=== PATIENT | female | born 1965 | race Caucasian/White ===

== ENCOUNTER 2017-02-15 06:52 | Day surgery (SDC) | payer BC ==
[2017-02-11 17:06] VITALS: BMI 29.0
[2017-02-15] MEDS ORDERED: CEFAZOLIN/Water 2 GM/20 ML SYRINGE ONE (08:40)
[2017-02-15] MEDS ORDERED: Ropivacaine 0.2% HCl/PF 20 ML ONE (09:06)
[2017-02-15] MEDS ORDERED: Fentanyl 100 MCG/2 ML VIAL ONE (09:06)
[2017-02-15] MEDS ORDERED: Midazolam HCl 2 mg/2 ml Vial ONE (09:06)
[2017-02-15] MEDS ORDERED: Ketorolac Tromethamine 30 MG/ML VIAL IVP PRN (09:39)
[2017-02-15] MEDS ORDERED: Zolpidem Tartrate 5 MG TAB PO PRN (09:39)
[2017-02-15] MEDS ORDERED: HYDROcodone/Acetaminophen 10/325 mg Tablet PO PRN ×2 (09:39)
[2017-02-15] MEDS ORDERED: Promethazine HCl 25 MG/ML VIAL IM PRN (09:39)
[2017-02-15] MEDS ORDERED: traMADol HCl 50 MG TAB PO PRN ×2 (09:39)
[2017-02-15] MEDS ORDERED: Fentanyl 100 MCG/2 ML VIAL IV PRN (09:39)
[2017-02-15] MEDS ORDERED: Ropivacaine 0.2% 550 ML 550 ML NERVE BLCK SCH (09:39)
[2017-02-15] MEDS ORDERED: Ondansetron HCl/PF 4 MG/2 ML Vial IVP PRN (09:39)
[2017-02-15] MEDS ORDERED: Bupivacaine/Epinephrine 0.25% 30 ML VIAL ONE (10:05)
[2017-02-15] MEDS ORDERED: Glycopyrrolate 0.2 MG/ML 5 ML SYRINGE ONE (10:47)
[2017-02-15] MEDS ORDERED: Ondansetron HCl/PF 4 MG/2 ML Vial ONE (10:47)
[2017-02-15] MEDS ORDERED: Ketorolac Tromethamine 30 MG/ML VIAL ONE (10:47)
[2017-02-15] MEDS ORDERED: Lidocaine 2% MPF 10 ML AMP (For Epidural Use) ONE (10:47)
[2017-02-15] MEDS ORDERED: PHENYLEPHRINE-NS 100 MCG/ML 10 ML SYRINGE ONE (10:47)
[2017-02-15] MEDS ORDERED: Propofol 200 MG/20 ML VIAL ONE (10:47)
--- NOTE | 2017-02-15 13:12 | OP ---
DATE OF PROCEDURE: 02/15/2017 PREOPERATIVE DIAGNOSIS: Right rotator cuff tear. POSTOPERATIVE DIAGNOSIS: Right rotator cuff tear. PROCEDURE PERFORMED: Right arthroscopic rotator cuff repair. STAFF: Burke Oden M.D. WELDING MACHINE OPERATOR ELECTRON BEAM: None. ANESTHESIA: Bright Patterson. The patient received general endotracheal intubation interscalene block. ESTIMATED BLOOD LOSS: 30 mL. TOURNIQUET TIME: None. IMPLANTS: 5.5 corkscrews, 5.5 SwiveLock. ANTIBIOTICS: Two grams. COMPLICATIONS: None. HISTORY OF PRESENT ILLNESS: Ms. Lawson is a pleasant 49-year-old female who presented to me with abo ut 6 months of shoulder pain. She had a full thickness tear on imaging. I discussed with patient t he risks and benefits of arthroscopic evaluation and rotator cuff repair. She understood the risks and benefits to include pain, scar, bleeding, infection, damage to vital structures, decreased range of motion, strength, continued pain, failure of procedure, failure of repair with history of bariat jin surgery. The patient understood the risks and benefits and elected to proceed. PROCEDURE IN DETAIL: Timeout was performed designating the patient's right upper extremity as the o perative site based on sight, consents and markings. After completion of timeout, the patient's rig ht upper extremity was prepped and draped in sterile fashion. She was in a beach chair positioning. The patient in a posterior working portal and anterior working portal, we looked intraarticularly. There is no glenoid or humeral defects. No lesions. There was some fraying of the subscapularis. There was some fraying of the capsule, but no full thickness component noted intra-articularly. I looked for any loose bodies, labrum was split subtly degenerated, but otherwise intact. I moved mendoza bacromially, removed the bursa, exposed the patient's subacromial space and found her tear. We debr ided the bone with a shaver as well as subacromially debrided the subacromial space to help with ope n positioning, we debrided this, we placed an awl, and passed a 5.5 corkscrew into the hole. We the n passed anterior to posterior screws and sewed posterior to anterior horizontal mattress sutures, a total of 2. A second row 5.5 SwiveLock laterally to help to compress the cuff down to its footprin t. I then cut the sutures, removed the anchors, adjusted stability. I liked the overall alignment and position of the repair. We then washed, closed with 2-0 nylon. The patient was placed in an abduction sling. She will remain in it for 2 weeks. She will work on elbow, wrist, and hand motion until I see her back in 2 weeks in clinic.
[2017-02-15] MEDS ORDERED: Ropivacaine 0.5% HCl/PF (150 MG/30 ML VIAL) ONE (14:47)
== END 2017-02-15 14:10 | disposition home or self-care (01) ==
LOC: SDC 06:52
PROVIDERS: ATTEND Orthopaedic Surgery
PROC: 0LQ14ZZ Repair Right Shoulder Tendon, Percutaneous Endoscopic Approach (ICD-10-PCS; principal; 2017-02-15)
DX: S46.011A Strain of muscle(s) and tendon(s) of the rotator cuff of right shoulder, initial encounter (principal)
CPT/HCPCS: A4306; C1713; J1885; J2001; J2250; J2405; J2704; J2795; J3010

== ENCOUNTER 2017-12-15 10:27 | Outpatient (CLI) | payer BC | END 2017-12-15 10:28 | disposition home or self-care (01) | LOC: BICMAMMO 10:27 | PROVIDERS: ATTEND Internal Medicine | DX: Z12.31 Encounter for screening mammogram for malignant neoplasm of breast (principal) | CPT/HCPCS: 77063; 77067 ==

== ENCOUNTER 2017-12-21 16:06 | Outpatient (CLI) | payer BC | END 2017-12-21 16:07 | disposition home or self-care (01) | LOC: BICRAD 16:06 | PROVIDERS: ATTEND Internal Medicine Rheumatology | DX: M54.5 Low back pain (principal); M47.896 Other spondylosis, lumbar region; M47.897 Other spondylosis, lumbosacral region; M43.16 Spondylolisthesis, lumbar region | CPT/HCPCS: 72100 ==

== ENCOUNTER 2018-03-15 20:42 | Emergency (ER) | payer BC ==
[2018-03-15] MEDS ORDERED: Dexamethasone 10 MG/ML VIAL ONE (21:08)
[2018-03-15] MEDS ORDERED: hydrOXYzine 25 MG TAB ONE (21:08)
[2018-03-15] MEDS ORDERED: Famotidine 20 MG TAB ONE (21:08)
== END 2018-03-15 23:00 | disposition home or self-care (01) ==
LOC: ERS 20:42
DX: T78.40XA Allergy, unspecified, initial encounter (principal); E78.5 Hyperlipidemia, unspecified
CPT/HCPCS: 99282; J1100

== ENCOUNTER 2018-03-22 08:51 | Outpatient (CLI) | payer BC ==
--- NOTE | 2018-03-22 11:10 | BD ---
[facility] DEXA BONE DENSITY SCAN: 03/22/2018 HISTORY: Postmenopausal female undergoing screening for osteoporosis. FINDINGS: LUMBAR SPINE BMD (g/cm2) T-SCORE L1 0.993 0.0 L2 1.018 -0.1 L3 1.035 -0.4 L4 1.142 0.7 TOTAL 1.049 0.0 FEMORAL NECK 0.657 -1.7 TOTAL 0.868 -0.6 FRAX: The WHO Fracture Risk Assessment Tool reports a 10-year fracture risk of 6% for a major osteop orotic fracture of 0.6% for a hip fracture, in an untreated patient. IMPRESSION: Femoral neck osteopenia, correlating with a moderately increased risk for fracture. POS: [facility]
== END 2018-03-22 08:52 | disposition home or self-care (01) ==
LOC: BICMAMMO 08:51
PROVIDERS: ATTEND Student in an Organized Health Care Education/Training Program
DX: Z13.820 Encounter for screening for osteoporosis (principal); M85.859 Other specified disorders of bone density and structure, unspecified thigh
CPT/HCPCS: 77080

== ENCOUNTER 2018-10-08 08:47 | Emergency (ER) | payer BC ==
[2018-10-08] MEDS ORDERED: Lorazepam 2 MG/ML VIAL ONE (10:11)
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
[2018-10-08 10:51] LABS: #Eosinphils 0.1 thou/uL (0.0-0.7); #Lymphocytes 2.2 thou/uL (1.20-3.40); #Monocytes 0.4 thou/uL (0.11-0.59); #Neutrophils 6.4 thou/uL (1.40-6.50); %Basophils 0.5 % (0.0-1.0); %Eosinophils 1.4 % (0.0-10.0); %Lymphocytes 24.1 % (21.0-51.0); %Monocytes 4.7 % (0.0-10.0); %Neutrophils 69.2 % (42.0-75.0); Hemoglobin 14.4 g/dL (12.0-16.0); Mean Corpuscular Hemoglobin 30.8 pg (27.0-31.0); Mean Corpuscular Volume 90.5 fL (78.0-98.0); Mean Platelet Volume 6.9 fL (7.4-10.4); Platelet Count 355 thou/uL (130-400); RBC Distribution Width 12.2 % (11.5-14.5); Red Blood Cell (RBC) Count 4.69 mill/uL (4.20-5.40); White Blood Cell (WBC) Count 9.2 thou/uL (4.8-10.8)
[2018-10-08 11:00] LABS: Bilirubin Negative (Negative); Blood, Urine Negative (Negative); Clarity Clear (Clear); Glucose, Urine (Dipstick) Normal (Negative); Leukocyte Negative Leu/uL (Negative); Nitrite Negative (Negative); Protein, Urine (Dipstick) Negative (Neg-Trace); Urobilinogen Normal mg/dL (Less than 2)
[2018-10-08 11:02] LABS: Amphetamine Detected (NotDetected); Barbiturates Screen Not Detected (NotDetected); Benzodiazepine Screen Detected (NotDetected); Cocaine Metabolite Screen Not Detected (NotDetected); Medtox Control Line Valid? VALID (VALID); Medtox Reader # READER 1; Methadone Not Detected (NotDetected); Methamphetamine Not Detected (NotDetected); Opiate Screen Not Detected (NotDetected); Oxycodone Screen Not Detected (NotDetected); Phencyclidine (PCP) Not Detected (NotDetected); THC/Cannabinoid Screen Not Detected (NotDetected); Tricyclic Screen Not Detected (NotDetected)
[2018-10-08 11:10] LABS: ALT (SGPT) 14 U/L (8-55); AST (SGOT) 22 U/L (5-34); Acetaminophen Less than 6.0 mcg/mL (10.0-30.0); Albumin 4.1 g/dL (3.5-5.0); Alcohol Less than 10 mg/dL (Less than 10); Alkaline Phosphatase 95 U/L (40-150); Anion Gap 14 mmol/L (10-20); BUN (Urea Nitrogen) 11 mg/dL (9.8-20.1); Bilirubin, Total 0.4 mg/dL (0.2-1.2); Calc. Creatinine Clearance 0 mL/min (70-130); Calcium 9.4 mg/dL (7.8-10.44); Carbon Dioxide 27 mmol/L (22-29); Chloride 101 mmol/L (98-107); Estimated GFR-MDRD 63; Globulin 3.2 g/dL (2.4-3.5); Glucose 88 mg/dL (70-105); Potassium 3.6 mmol/L (3.5-5.1); Protein, Total 7.3 g/dL (6.0-8.3); Salicylate Less than 8.0 mg/dL (15.0-30.0); Sodium 138 mmol/L (136-145)
== END 2018-10-08 13:11 | disposition home or self-care (01) ==
LOC: ERS 08:47
DX: R53.83 Other fatigue (principal); E78.5 Hyperlipidemia, unspecified; F41.9 Anxiety disorder, unspecified; F32.9 Major depressive disorder, single episode, unspecified; Z79.899 Other long term (current) drug therapy; V43.52XA Car driver injured in collision with other type car in traffic accident, initial encounter
CPT/HCPCS: 70450; 80053; 80306; 80307; 81003; 84443; 85025; 93005; 96361; 96374; J2060

== ENCOUNTER 2020-01-15 15:11 | Outpatient (CLI) | payer BC ==
--- NOTE | 2020-01-15 15:45 | RAD ---
XR Knee Lt 3 View HISTORY: Injury, left knee pain, sprain FINDINGS: No fracture or dislocation is identified. There is no evidence of a joint effusion.
== END 2020-01-15 15:12 | disposition home or self-care (01) ==
LOC: BICRAD 15:11
PROVIDERS: ATTEND Family Medicine
DX: S83.92XA Sprain of unspecified site of left knee, initial encounter (principal)

== ENCOUNTER 2022-03-18 14:29 | Outpatient (CLI) | payer MEDICARE | END 2022-03-18 14:30 | disposition home or self-care (01) | LOC: BICMAMMO 14:29 | PROVIDERS: ATTEND Advanced Practice Midwife | DX: Z13.820 Encounter for screening for osteoporosis (principal); M85.851 Other specified disorders of bone density and structure, right thigh; M85.852 Other specified disorders of bone density and structure, left thigh | CPT/HCPCS: 77080 ==

== ENCOUNTER 2022-11-25 16:08 | Observation (INO) | payer MEDICARE ==
[2022-11-25 17:04] LABS: #Eosinphils 0.2 thou/uL (0.0-0.7); #Monocytes 0.5 thou/uL (0.11-0.59); #Neutrophils 6.2 thou/uL (1.40-6.50); %Basophils 0.4 % (0.0-1.0); %Lymphocytes 28.9 % (21.0-51.0); %Monocytes 5.2 % (0.0-10.0); %Neutrophils 63.2 % (42.0-75.0); Hematocrit 40.1 % (36.0-47.0); Hemoglobin 12.6 g/dL (12.0-16.0); Mean Corpuscular HGB CONC 31.4 g/dL (32.0-36.0); Mean Corpuscular Hemoglobin 28.4 pg (27.0-31.0); Mean Corpuscular Volume 90.3 fl (78.0-98.0); Mean Platelet Volume 9.3 fL (7.4-10.4); Platelet Count 376 10x3/uL (130-400); RBC Distribution Width 15.2 % (11.5-14.5); Red Blood Cell (RBC) Count 4.44 mill/uL (4.20-5.40); White Blood Cell (WBC) Count 9.9 10x3/uL (4.8-10.8)
[2022-11-25 17:32] LABS: ALT (SGPT) 12 U/L (8-55); AST (SGOT) 21 U/L (5-34); Albumin 4.1 g/dL (3.5-5.0); Alkaline Phosphatase 113 U/L (40-110); Anion Gap 14 mmol/L (10-20); BUN (Urea Nitrogen) 9 mg/dL (9.8-20.1); Bilirubin, Total 0.2 mg/dL (0.2-1.2); Calc. Creatinine Clearance 0 mL/min (70-130); Calcium 9.1 mg/dL (7.8-10.44); Carbon Dioxide 26 mmol/L (22-29); Chloride 105 mmol/L (98-107); Estimated GFR 63; Globulin 2.9 g/dL (2.4-3.5); Glucose 82 mg/dL (70-105); Potassium 4.6 mmol/L (3.5-5.1); Sodium 140 mmol/L (136-145)
[2022-11-25 17:41] LABS: Troponin I Less than 0.010 ng/mL (< 0.028)
[2022-11-25] MEDS ORDERED: Aspirin Chewable 81 MG TAB ONE ×2 (18:38→18:41)
[2022-11-25] MEDS ORDERED: Acetaminophen 325 MG TAB ONE (18:38)
[2022-11-25] MEDS ORDERED: Nitroglycerin 0.4 MG TAB 1 EACH ONE (18:55)
[2022-11-25] MEDS ORDERED: Morphine 4 MG/ML VIAL ONE (20:04)
[2022-11-25 21:09] LABS: Troponin I Less than 0.010 ng/mL (< 0.028)
[2022-11-25] MEDS ORDERED: Senokot S 8.6-50 MG TAB PO PRN (21:49)
[2022-11-25] MEDS ORDERED: Calcium Carbonate 500 MG ChewTAB PO PRN (21:49)
[2022-11-25] MEDS ORDERED: Ondansetron ODT 4 MG TAB PO PRN (21:49)
[2022-11-25 22:46] VITALS: BMI 36.6
[2022-11-26] MEDS ORDERED: Zolpidem Tartrate 5 MG TAB PO PRN (00:14)
[2022-11-26 00:46] LABS: Troponin I Less than 0.010 ng/mL (< 0.028)
[2022-11-26] MEDS ORDERED: Lidocaine 2% Viscous Solution 10 ML, Aluminum & Magnesium Hydroxide 30 ML SSW SCH (01:00)
[2022-11-26] MEDS ORDERED: Levothyroxine Sodium 75 MCG TAB PO SCH (06:00)
[2022-11-26 06:35] LABS: #Eosinphils 0.3 thou/uL (0.0-0.7); #Monocytes 0.5 thou/uL (0.11-0.59); #Neutrophils 4.2 thou/uL (1.40-6.50); %Basophils 0.5 % (0.0-1.0); %Eosinophils 3.4 % (0.0-10.0); %Lymphocytes 35.7 % (21.0-51.0); %Monocytes 6.6 % (0.0-10.0); %Neutrophils 53.5 % (42.0-75.0); Hematocrit 34.9 % (36.0-47.0); Hemoglobin 10.9 g/dL (12.0-16.0); Mean Corpuscular HGB CONC 31.2 g/dL (32.0-36.0); Mean Corpuscular Hemoglobin 28.8 pg (27.0-31.0); Mean Corpuscular Volume 92.1 fl (78.0-98.0); Mean Platelet Volume 9.2 fL (7.4-10.4); Platelet Count 309 10x3/uL (130-400); RBC Distribution Width 15.3 % (11.5-14.5); Red Blood Cell (RBC) Count 3.79 mill/uL (4.20-5.40); White Blood Cell (WBC) Count 7.9 10x3/uL (4.8-10.8)
[2022-11-26 07:00] LABS: Anion Gap 12 mmol/L (10-20); BUN (Urea Nitrogen) 10 mg/dL (9.8-20.1); Calc. Creatinine Clearance 105 mL/min (70-130); Calcium 8.4 mg/dL (7.8-10.44); Carbon Dioxide 26 mmol/L (22-29); Cardiac Risk 3.3 (Less than 4.5); Chloride 104 mmol/L (98-107); Cholesterol 183 mg/dl (< 200 Desired); Estimated GFR 69; Glucose 99 mg/dL (70-105); HDL Cholesterol 56 mg/dL (>60 Neg Risk); LDL Cholesterol, Calculated 102 mg/dL; Potassium 3.8 mmol/L (3.5-5.1); Sodium 138 mmol/L (136-145); Triglycerides 127 mg/dL (Less than 150)
[2022-11-26] MEDS ORDERED: Famotidine 20 MG TAB PO SCH (09:00)
[2022-11-26] MEDS ORDERED: Aripiprazole 2 MG TAB PO SCH (09:00)
[2022-11-26] MEDS ORDERED: Sertraline 100 MG TAB PO SCH (09:00)
[2022-11-26] MEDS ORDERED: Venlafaxine HCl XR 150 MG CAP PO SCH (09:00)
[2022-11-26] MEDS ORDERED: Aspirin Chewable 81 MG TAB PO SCH (09:00)
[2022-11-26] MEDS ORDERED: Lorazepam 0.5 MG TAB PO SCH (09:00)
[2022-11-26] MEDS ORDERED: Regadenoson 0.4 MG/5 ML SYRINGE ONE (13:29)
[2022-11-26] MEDS ORDERED: Morphine 2 MG/ML VIAL SLOW IVP SCH (14:00)
[2022-11-26 16:23] VITALS: BP 129/71; TEMP 97.8
[2022-11-26] MEDS ORDERED: Atorvastatin Calcium 20 MG TAB PO SCH (21:00)
[2022-11-26] MEDS ORDERED: Mirtazapine 15 MG TAB PO SCH (21:00)
[2022-11-26] MEDS ORDERED: Estradiol 1 MG TAB PO SCH (21:00)
== END 2022-11-26 18:25 | disposition home or self-care (01) ==
LOC: ERS 16:08 → 2SW 20:43
PROVIDERS: ADMIT Student in an Organized Health Care Education/Training Program; ATTEND Internal Medicine
DX: R07.9 Chest pain, unspecified (principal); E03.9 Hypothyroidism, unspecified; E78.5 Hyperlipidemia, unspecified; F41.8 Other specified anxiety disorders; E66.9 Obesity, unspecified; Z68.36 Body mass index [BMI] 36.0-36.9, adult; Z88.6 Allergy status to analgesic agent; Z90.89 Acquired absence of other organs; Z90.710 Acquired absence of both cervix and uterus; Z79.899 Other long term (current) drug therapy; Z90.49 Acquired absence of other specified parts of digestive tract; Z98.84 Bariatric surgery status; Z79.890 Hormone replacement therapy
CPT/HCPCS: 71045; 78452; 80048; 80053; 80061; 84484 ×3; 85025 ×2; 93005; 93017; 96374; 99285; A9500; J2785; 36415; 96376; G0378; J2270; J2272

== ENCOUNTER 2023-03-11 09:44 | Outpatient (CLI) | payer MEDICARE | END 2023-03-11 09:45 | disposition home or self-care (01) | LOC: BICMAMMO 09:44 | PROVIDERS: ATTEND Advanced Practice Midwife | DX: Z12.31 Encounter for screening mammogram for malignant neoplasm of breast (principal); Z91.89 Other specified personal risk factors, not elsewhere classified | CPT/HCPCS: 77063; 77067 ==

== ENCOUNTER 2023-10-23 13:28 | Emergency (ER) | payer MEDICARE ==
[~2023-10-23 13:28] MED LIST: Iopamidol-370 76% 500 ML MDV (1 ML CHARGE) ONE
[2023-10-23 14:57] LABS: #Basophils 0.04 10x3/uL (0.0-0.2); %Basophils 0.4 % (0.0-1.0); %Eosinophils 1.5 % (0.0-10.0); %Lymphocytes 17.9 % (21.0-51.0); %Monocytes 7.8 % (0.0-10.0); %Neutrophils 72.1 % (42.0-75.0); Hematocrit 41.4 % (36.0-47.0); Hemoglobin 13.9 g/dL (12.0-16.0); Mean Corpuscular HGB CONC 33.6 g/dL (32.0-36.0); Mean Corpuscular Hemoglobin 31.4 pg (27.0-31.0); Mean Corpuscular Volume 93.5 fL (78.0-98.0); Mean Platelet Volume 9.4 fL (7.4-10.4); Platelet Count 276 10x3/uL (130-400); RBC Distribution Width 13.6 % (11.5-14.5); Red Blood Cell (RBC) Count 4.43 mill/uL (4.20-5.40)
[2023-10-23 15:14] LABS: ALT (SGPT) 17 U/L (8-55); AST (SGOT) 21 U/L (5-34); Albumin 3.5 g/dL (3.5-5.0); Alkaline Phosphatase 86 U/L (40-110); Anion Gap 15 mmol/L (10-20); BUN (Urea Nitrogen) 11 mg/dL (9.8-20.1); Bilirubin, Total 0.3 mg/dL (0.2-1.2); Calc. Creatinine Clearance 0 mL/min (70-130); Calcium 9.1 mg/dL (7.8-10.44); Carbon Dioxide 25 mmol/L (22-29); Chloride 103 mmol/L (98-107); Estimated GFR 74; Globulin 3.5 g/dL (2.4-3.5); Glucose 94 mg/dL (70-105); Potassium 3.8 mmol/L (3.5-5.1); Sodium 139 mmol/L (136-145)
[2023-10-23 16:34] LABS: Bacteria/HPF None Seen HPF (None Seen); Bilirubin Negative (Negative); Blood, Urine Negative (Negative); CAUTI Indications for Culture Acute Hematuria; Clarity Clear (Clear); Glucose, Urine (Dipstick) Normal (Negative); Ketone, Urine Negative (Negative); Leukocyte Negative Leu/uL (Negative); Nitrite Negative (Negative); Protein, Urine (Dipstick) Negative (Neg-Trace); RBC/HPF None Seen HPF (0-3); Specific Gravity, Urine 1.031 (1.002-1.036); Squamous Epithelial 0-3 HPF (0-3); Urobilinogen Normal mg/dL (Less than 2); WBC/HPF 0-3 HPF (0-3)
[2023-10-23 16:36] LABS: Urine Culture Reflex No No
[2023-10-23 16:57] LABS: SARS-CoV-2 E Target Positive; SARS-CoV-2 N2 Target Positive; SARS-CoV-2 NAA Rapid Test DETECTED (NotDetected); SARS-CoV-2 RdRP gene Positive
[2023-10-23] MEDS ORDERED: Morphine 4 MG/ML VIAL ONE (18:17)
[2023-10-23] MEDS ORDERED: Ondansetron PF 4 MG/2 ML Vial ONE (18:17)
== END 2023-10-23 18:36 | disposition home or self-care (01) ==
LOC: ERS 13:28
DX: U07.1 COVID-19 (principal); R10.9 Unspecified abdominal pain; R74.8 Abnormal levels of other serum enzymes; I10 Essential (primary) hypertension; E78.5 Hyperlipidemia, unspecified; Z79.899 Other long term (current) drug therapy
CPT/HCPCS: 74177; 80053; 81001; 83690; 85025; J2270; J2405; U0002; 36415; 96374; 96375; Q9967

== ENCOUNTER 2023-10-27 10:44 | Inpatient (IN) | payer MEDICARE ==
[2023-10-27 11:20] LABS: #Basophils 0.04 10x3/uL (0.0-0.2); %Basophils 0.4 % (0.0-1.0); %Eosinophils 2.2 % (0.0-10.0); %Lymphocytes 29.8 % (21.0-51.0); %Monocytes 4.8 % (0.0-10.0); %Neutrophils 62.6 % (42.0-75.0); Hematocrit 43.5 % (36.0-47.0); Hemoglobin 14.7 g/dL (12.0-16.0); Mean Corpuscular HGB CONC 33.8 g/dL (32.0-36.0); Mean Corpuscular Hemoglobin 31.5 pg (27.0-31.0); Mean Corpuscular Volume 93.1 fL (78.0-98.0); Mean Platelet Volume 9.3 fL (7.4-10.4); Platelet Count 308 10x3/uL (130-400); RBC Distribution Width 13.4 % (11.5-14.5); Red Blood Cell (RBC) Count 4.67 mill/uL (4.20-5.40)
[2023-10-27 11:43] LABS: ALT (SGPT) 26 U/L (8-55); AST (SGOT) 34 U/L (5-34); Albumin 3.6 g/dL (3.5-5.0); Alkaline Phosphatase 104 U/L (40-110); Anion Gap 13 mmol/L (10-20); BUN (Urea Nitrogen) 15 mg/dL (9.8-20.1); Bilirubin, Total 0.4 mg/dL (0.2-1.2); Calc. Creatinine Clearance 0 mL/min (70-130); Calcium 9.2 mg/dL (7.8-10.44); Carbon Dioxide 30 mmol/L (22-29); Chloride 98 mmol/L (98-107); Estimated GFR 44; Globulin 3.6 g/dL (2.4-3.5); Glucose 94 mg/dL (70-105); Lipase 153 U/L (8-78); Magnesium 2.1 mg/dL (1.6-2.6); Potassium 3.6 mmol/L (3.5-5.1); Protein, Total 7.2 g/dL (6.0-8.3); Sodium 137 mmol/L (136-145)
[2023-10-27] MEDS ORDERED: Iopamidol-370 76% 500 ML MDV (1 ML CHARGE) ONE (11:46)
[2023-10-27] MEDS ORDERED: Ketorolac Tromethamine 30 MG (1 mL) VIAL ONE (11:57)
[2023-10-27] MEDS ORDERED: Ondansetron PF 4 MG/2 ML Vial ONE (11:58)
[2023-10-27] MEDS ORDERED: Morphine 4 MG/ML VIAL ONE (11:58)
[2023-10-27 12:20] LABS: Troponin I Less than 0.010 ng/mL (< 0.028)
[2023-10-27 13:20] LABS: Bilirubin Negative (Negative); Blood, Urine Negative (Negative); CAUTI Indications for Culture Fever or rigors; Clarity Turbid (Clear); Glucose, Urine (Dipstick) Normal (Negative); Ketone, Urine Negative (Negative); Leukocyte 250 Leu/uL (Negative); Nitrite Negative (Negative); Protein, Urine (Dipstick) Negative (Neg-Trace); RBC/HPF 0-3 HPF (0-3); Squamous Epithelial 21-50 HPF (0-3); Urobilinogen Normal mg/dL (Less than 2); WBC/HPF 21-50 HPF (0-3); pH, Urine 5.5 (5.0-9.0)
[2023-10-27 13:24] LABS: Bacteria/HPF 1+ HPF (None Seen)
[2023-10-27 13:26] LABS: Urine Culture Reflex Yes Yes
[2023-10-27] MEDS ORDERED: Calcium Carbonate 500 MG ChewTAB PO PRN (15:16)
[2023-10-27] MEDS ORDERED: Ondansetron ODT 4 MG TAB PO PRN (15:16)
[2023-10-27] MEDS ORDERED: Ondansetron PF 4 MG/2 ML Vial IVP PRN (15:16)
[2023-10-27] MEDS ORDERED: Morphine 2 MG/ML VIAL SLOW IVP PRN (15:23)
[2023-10-27] MEDS ORDERED: hydrALAZINE 25 MG TAB PO PRN (15:27)
[2023-10-27 17:09] VITALS: BMI 32.8
[2023-10-27] MEDS ORDERED: Cyclobenzaprine 10 MG TAB PO SCH (17:15)
[2023-10-27] MEDS ORDERED: Cyclobenzaprine 10 MG TAB PO PRN (17:25)
[2023-10-27] MEDS: Lactated Ringer's 250 ML IV SCH (18:00)
[2023-10-27] MEDS: Lactated Ringer's 1,000 ML IV SCH (18:00)
[2023-10-27] MEDS: Zinc Sulfate 220 MG CAP PO SCH (20:02)
[2023-10-27] MEDS: Famotidine 20 MG TAB PO SCH (20:02)
[2023-10-27] MEDS: Ascorbic Acid 500 mg Chewable Tablet PO SCH (20:02)
[2023-10-27] MEDS: Cholecalciferol 1,000 UNITS (25 MCG) TAB PO SCH (20:02)
[2023-10-27] MEDS: Multivit, Therapeutic 1 TAB PO SCH (20:02)
[2023-10-27] MEDS: Acetaminophen 325 MG TAB PO PRN (20:03)
[2023-10-27 20:12] LABS: Bacteria/HPF None Seen HPF (None Seen); Bilirubin Negative (Negative); Blood, Urine Negative (Negative); Clarity Clear (Clear); Glucose, Urine (Dipstick) Normal (Negative); Ketone, Urine Negative (Negative); Leukocyte 75 Leu/uL (Negative); Nitrite Negative (Negative); Protein, Urine (Dipstick) Negative (Neg-Trace); RBC/HPF 0-3 HPF (0-3); Specific Gravity, Urine 1.037 (1.002-1.036); Squamous Epithelial 0-3 HPF (0-3); Urobilinogen Normal mg/dL (Less than 2)
[2023-10-27] MEDS: HYDROcodone/Acetaminophen 5/325 mg Tablet PO PRN (21:15)
[2023-10-28 05:15] LABS: #Basophils Less than 0.03 10x3/uL (0.0-0.2); %Basophils 0.3 % (0.0-1.0); %Eosinophils 3.7 % (0.0-10.0); %Lymphocytes 38.3 % (21.0-51.0); %Monocytes 6.5 % (0.0-10.0); %Neutrophils 51.1 % (42.0-75.0); Hematocrit 36.3 % (36.0-47.0); Hemoglobin 12.3 g/dL (12.0-16.0); Mean Corpuscular HGB CONC 33.9 g/dL (32.0-36.0); Mean Corpuscular Hemoglobin 30.8 pg (27.0-31.0); Mean Platelet Volume 9.8 fL (7.4-10.4); Platelet Count 242 10x3/uL (130-400); RBC Distribution Width 13.2 % (11.5-14.5); Red Blood Cell (RBC) Count 3.99 mill/uL (4.20-5.40)
[2023-10-28 05:41] LABS: ALT (SGPT) 18 U/L (8-55); AST (SGOT) 22 U/L (5-34); Albumin 2.9 g/dL (3.5-5.0); Alkaline Phosphatase 84 U/L (40-110); BUN (Urea Nitrogen) 14 mg/dL (9.8-20.1); Bilirubin, Total 0.4 mg/dL (0.2-1.2); Calc. Creatinine Clearance 93 mL/min (70-130); Calcium 8.3 mg/dL (7.8-10.44); Carbon Dioxide 31 mmol/L (22-29); Estimated GFR 64; Globulin 2.7 g/dL (2.4-3.5); Glucose 75 mg/dL (70-105); Magnesium 2.1 mg/dL (1.6-2.6); Protein, Total 5.6 g/dL (6.0-8.3)
[2023-10-28 06:02] LABS: Anion Gap 11 mmol/L (10-20); Chloride 100 mmol/L (98-107); Potassium 3.2 mmol/L (3.5-5.1); Sodium 135 mmol/L (136-145)
[2023-10-28] MEDS ORDERED: Electrolyte Replacement Protocol 1 EACH FS SCH (07:45)
[2023-10-28] MEDS ORDERED: Electrolyte Replacement Protocol FS PRN (08:00)
[2023-10-28] MEDS ORDERED: Fioricet 325/50/40 mg Tablet PO PRN (09:23)
[2023-10-28] MEDS ORDERED: Ketorolac Tromethamine 30 MG (1 mL) VIAL IVP PRN (09:24)
[2023-10-28] MEDS: Fioricet 325/50/40 mg Tablet PO SCH (10:20)
[2023-10-28] MEDS: Potassium Chloride 20 MEQ TAB PO SCH (10:21)
[2023-10-28] MEDS: Enoxaparin 40 MG (0.4 mL) SYRINGE SC SCH (10:21)
[2023-10-28] MEDS: HYDROcodone/Acetaminophen 10/325 mg Tablet PO PRN ×2 (14:31→21:38)
[2023-10-28] MEDS ORDERED: HYDROcodone/Acetaminophen 5/325 mg Tablet PO PRN (20:46)
[2023-10-28] MEDS: Temazepam 15 MG CAP PO SCH (21:00)
[2023-10-28] MEDS: Sertraline 100 MG TAB PO SCH (21:39)
[2023-10-28] MEDS: Atorvastatin Calcium 20 MG TAB PO SCH (21:40)
[2023-10-28] MEDS: Mirtazapine 30 MG TAB PO SCH (21:41)
[2023-10-28] MEDS: Gabapentin 300 MG CAP PO SCH (21:41)
[2023-10-29] MEDS: Levothyroxine Sodium 75 MCG TAB PO SCH (05:13)
[2023-10-29 05:30] LABS: #Basophils Less than 0.03 10x3/uL (0.0-0.2); %Basophils 0.3 % (0.0-1.0); %Lymphocytes 44.1 % (21.0-51.0); %Monocytes 6.9 % (0.0-10.0); %Neutrophils 45.5 % (42.0-75.0); Hematocrit 37.1 % (36.0-47.0); Hemoglobin 12.3 g/dL (12.0-16.0); Mean Corpuscular HGB CONC 33.2 g/dL (32.0-36.0); Mean Corpuscular Hemoglobin 30.2 pg (27.0-31.0); Mean Corpuscular Volume 91.2 fL (78.0-98.0); Platelet Count 248 10x3/uL (130-400); Red Blood Cell (RBC) Count 4.07 mill/uL (4.20-5.40)
[2023-10-29 06:08] LABS: ALT (SGPT) 16 U/L (8-55); AST (SGOT) 20 U/L (5-34); Albumin 2.8 g/dL (3.5-5.0); Alkaline Phosphatase 75 U/L (40-110); Anion Gap 9 mmol/L (10-20); BUN (Urea Nitrogen) 8 mg/dL (9.8-20.1); Bilirubin, Total 0.2 mg/dL (0.2-1.2); Calc. Creatinine Clearance 121 mL/min (70-130); Calcium 8.7 mg/dL (7.8-10.44); Carbon Dioxide 29 mmol/L (22-29); Chloride 107 mmol/L (98-107); Estimated GFR 88; Globulin 2.7 g/dL (2.4-3.5); Glucose 74 mg/dL (70-105); Potassium 4.1 mmol/L (3.5-5.1); Protein, Total 5.5 g/dL (6.0-8.3); Sodium 141 mmol/L (136-145)
[2023-10-29] MEDS: Venlafaxine HCl XR 150 MG CAP PO SCH (08:36)
[2023-10-29] MEDS: Magnesium 2 GM/50 ML(in water) 2 GM in Premix 1 BAG IVPB SCH (08:36)
[2023-10-29] MEDS: Losartan 25 MG TAB PO SCH (08:37)
[2023-10-29] MEDS: Hydrochlorothiazide 25 MG TAB PO SCH (08:37)
[2023-10-29 08:54] VITALS: TEMP 97.6
[2023-10-29] MEDS ORDERED: Diphenoxylate HCl/Atropine Tablet PO PRN (09:33)
[2023-10-29] MEDS: Diphenoxylate HCl/Atropine Tablet PO SCH (11:13)
[2023-10-29 14:26] VITALS: BP 123/80
== END 2023-10-29 14:15 | disposition home or self-care (01) | DRG 177 ==
LOC: ERS 10:44 → SJJU 14:52 → OBSVTOIN 10-28 13:19
PROVIDERS: ADMIT Internal Medicine; ATTEND Family Medicine
PROC: 8E0ZXY6 Isolation (ICD-10-PCS; principal; 2023-10-28)
DX: U07.1 COVID-19 (principal); K85.90 Acute pancreatitis without necrosis or infection, unspecified; N17.9 Acute kidney failure, unspecified; E87.3 Alkalosis; E87.6 Hypokalemia; E86.9 Volume depletion, unspecified; E78.5 Hyperlipidemia, unspecified; F41.9 Anxiety disorder, unspecified; E03.9 Hypothyroidism, unspecified; Z79.899 Other long term (current) drug therapy; Z88.8 Allergy status to other drugs, medicaments and biological substances; N18.2 Chronic kidney disease, stage 2 (mild); E86.0 Dehydration
CPT/HCPCS: 36415; 74177; 76705; 80053; 81001; 83605; 83690; 83735; 84484; 85025; 86141; 87086; 93005; 96361; 96372; 96374; 96375; G0378; J1650; J1885; J2272; J2405; J3475; J7120; Q9967

== ENCOUNTER 2024-03-12 10:09 | Outpatient (CLI) | payer MEDICARE | END 2024-03-12 10:10 | disposition home or self-care (01) | LOC: BICMAMMO 10:09 | PROVIDERS: ATTEND Internal Medicine | DX: Z12.31 Encounter for screening mammogram for malignant neoplasm of breast (principal); Z91.89 Other specified personal risk factors, not elsewhere classified | CPT/HCPCS: 77063; 77067 ==

== ENCOUNTER 2025-03-13 12:35 | Outpatient (CLI) | payer OTHER | END 2025-03-13 12:36 | disposition home or self-care (01) | LOC: BICMAMMO 12:35 | PROVIDERS: ATTEND Internal Medicine | DX: Z12.31 Encounter for screening mammogram for malignant neoplasm of breast (principal); N63.20 Unspecified lump in the left breast, unspecified quadrant; Z91.89 Other specified personal risk factors, not elsewhere classified | CPT/HCPCS: 77063; 77067 ==